=== PATIENT | female | born 1995 | race American Indian/Alaskan Native ===

== ENCOUNTER 2017-03-04 18:31 | Emergency (ER) | payer SELFPAY ==
[2017-03-04 18:49] VITALS: BP 119/75
== END 2017-03-04 20:46 | disposition left against medical advice (07) ==
LOC: ED 18:31
DX: J45.901 Unspecified asthma with (acute) exacerbation (principal); Z53.21 Procedure and treatment not carried out due to patient leaving prior to being seen by health care provider